=== PATIENT | female | born 1980 | race Caucasian/White ===

== ENCOUNTER 2017-12-13 13:24 | Emergency (ER) | payer OTHER ==
[2017-12-13 17:22] LABS: URINE BLOOD (Dip) POC 2+ (NEGATIVE); URINE GLUCOSE (Dip) POC Negative (NEGATIVE); URINE KETONES (Dip) POC Negative (NEGATIVE); URINE LEUKOCYTE EST (Dip) POC Negative (NEGATIVE); URINE NITRITE (Dip) POC Negative (NEGATIVE); URINE TOTAL PROTEIN POC Negative (NEGATIVE)
[2017-12-13 17:22] LABS: URINE PH (Dip) POC 5.5 (5.0-8.5)
[2017-12-13] MEDS: KETOROLAC 60 MG INJ IM (17:51)
== END 2017-12-13 18:50 | disposition home or self-care (01) ==
LOC: FTE 13:24
DX: M25.461 Effusion, right knee (principal)
CPT/HCPCS: 73562; 81003; 96372; 99284-25

== ENCOUNTER 2018-04-17 08:50 | Emergency (ER) | payer MEDICAID, OTHER | END 2018-04-17 11:24 | disposition home or self-care (01) | LOC: FTE 08:50 | DX: T19.2XXA Foreign body in vulva and vagina, initial encounter (principal); X58.XXXA Exposure to other specified factors, initial encounter; Y92.9 Unspecified place or not applicable | CPT/HCPCS: 99284; Z7502 ==